=== PATIENT | male | born 1990 | race African-American/Black ===

== ENCOUNTER 2021-09-28 12:43 | Emergency (ER) | payer OTHER ==
[~2021-09-28] VITALS: Ht 182.9 cm; Wt 113.4 kg
[2021-09-28 12:43] VITALS: BP 143/86
--- NOTE | 2021-09-28 12:45 | NUR ---
MIKE THURSTON VIA GURNEY TO BED 08.
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
--- NOTE | 2021-09-28 13:02 | NUR ---
UBALDO DUPONT AT BEDSIDE EVALUATING PT
[2021-09-28] MEDS ORDERED: MORPHINE SULFATE 4 MG/ML SYR IM ONE (13:10)
[2021-09-28] MEDS ORDERED: ONDANSETRON 4 MG ODT PO ONE (13:10)
--- NOTE | 2021-09-28 13:15 | NUR ---
Pt transported to [facility].
--- NOTE | 2021-09-28 13:51 | NUR ---
Pt returned from RAD by evelyn. Rates pain 0/10.
[2021-09-28] MEDS ORDERED: CYCL-711 PO (14:26)
[2021-09-28] MEDS ORDERED: LIDO1ADH47 TP (14:26)
[2021-09-28] MEDS ORDERED: NAPR-54 PO (14:26)
[2021-09-28 14:34] VITALS: BP 136/82
--- NOTE | 2021-09-28 14:34 | NUR ---
Patient discharged with v/s stable. Written and verbal after care instructions given and explained. Patient alert, oriented and verbalized understanding of instructions. Ambulatory with steady gait. All questions addressed prior to discharge. ID band removed. Patient advised to follow up with PMD. Rx of Flexeril, Lidocaine, Naproxen given. Patient educated on indication of medication including possible reaction and side effects. Opportunity to ask questions provided and answered.
== END 2021-09-28 14:34 | disposition home or self-care (01) ==
LOC: MED 12:43
DX: S13.4XXA Sprain of ligaments of cervical spine, initial encounter (principal); V98.8XXA Other specified transport accidents, initial encounter; Y93.89 Activity, other specified; Y92.89 Other specified places as the place of occurrence of the external cause; Y99.8 Other external cause status
CPT/HCPCS: 72050; 72072; 72110; 96372; 99284; J2270; Q0162; 99283